=== PATIENT | female | born 1950 | race Caucasian/White ===

== ENCOUNTER 2022-06-08 09:20 | Emergency (ER) | payer OTHER ==
[~2022-06-08] VITALS: Ht 175.3 cm; Wt 77.1 kg
[2022-06-08 09:58] LABS: HEMATOCRIT 42.7 % (36-48); MEAN CORPUSCULAR HEMOGLOBIN 29.5 pg (27.0-33.0); MEAN CORPUSCULAR HGB CONC 32.6 g/dL (32.0-36.0); MEAN CORPUSCULAR VOLUME 90.7 fL (79-99); PLATELET COUNT (AUTO) 238 K/uL (130-400); RED BLOOD CELL COUNT(AUTO) 4.71 MIL/uL (4.00-5.50); RED CELL DISTRIBUTION WIDTH 12.9 % (11.0-15.5); WHITE BLOOD COUNT (AUTO) 5.2 K/uL (4.8-10.8)
[2022-06-08 10:13] LABS: BASOPHILS % (MANUAL) 2 % (0-2); EOSINOPHILS % (MANUAL) 9 % (1-6); LYMPHOCYTES % (MANUAL) 31 % (22-44); MAN.DIFF COMMENT-IMPRESSION MANUAL DIFFERENTIAL; MONOCYTES % (MANUAL) 1 % (2-9); PLATELET MORPHOLOGY COMMENT ADEQUATE; REACTIVE LYMPHOCYTES 1 % (0-0); SEGMENTED NEUTROPHILS % 56 % (40-70)
[2022-06-08 10:24] LABS: CREATININE 0.8 mg/dL (0.5-1.5); POTASSIUM 3.9 mmol/L (3.5-5.1)
[2022-06-08 10:29] LABS: ALBUMIN 3.6 g/dL (3.5-5.0); TOTAL PROTEIN, SERUM 6.7 g/dL (6.0-8.3)
[2022-06-08] MEDS ORDERED: MORPHINE 4 MG SYG IVP ONE (10:30)
[2022-06-08] MEDS ORDERED: ONDANSETRON 4MG INJ IVP ONE (10:30)
[2022-06-08] MEDS ORDERED: KETOROLAC 15MG/ML VIAL (15MG/ML) IV ONE (12:30)
[2022-06-08] MEDS ORDERED: ORPHENADRINE CITRATE 30 MG/ML ML IVP ONE (12:30)
[2022-06-08] MEDS ORDERED: DEXAMETHASONE SOD PHOSPHATE 4 MG/ML 1ML VIAL IV ONE (12:30)
[2022-06-08] MEDS ORDERED: EPIN0.3P3 IJ (15:04)
[2022-06-08] MEDS ORDERED: PRED20TA3 PO (15:04)
[2022-06-08] MEDS ORDERED: DIAZ2TAB PO (15:04)
[2022-06-08 15:19] VITALS: BP 107/53
== END 2022-06-08 15:27 | disposition home or self-care (01) ==
LOC: EDH 09:20
DX: M54.50 Low back pain, unspecified (principal); Z91.040 Latex allergy status; Z98.890 Other specified postprocedural states
CPT/HCPCS: 99285; 96374; 96375; 72131; 80053; 85025; 36415; J1100; J2405; J2270; J1885; J2360